=== PATIENT | male | born 1970 | race Caucasian/White ===

== ENCOUNTER → 2020-07-26 | Outpatient (CLI) | payer OTHER ==
[~2020-07-26] MED LIST: BISOPROLOL-HCT1 EACH PO; NORCO 5-325 TA1 EAC2 PO; OLMESARTAN MEDO20 MG PO; VANCO 1.251.25 GM/25 IV; ZOCOR 20 MG TAB20 M1 PO
== END ==
LOC: M.LAB 16:23
PROVIDERS: ATTEND Orthopaedic Surgery
DX: Z01.812 Encounter for preprocedural laboratory examination (principal); Z20.828 Contact with and (suspected) exposure to other viral communicable diseases

== ENCOUNTER → 2020-07-30 | Day surgery (SDC) | payer OTHER ==
--- NOTE | ~2020-07-30 | OP ---
[address] [address] OPERATIVE REPORT Name: CARLY WAN Room: [facility]#: [id number] Admission: 07/30/20 Attend Phys: Johanny Garcia DO Discharge: Date of : 70 Report #: [id number] THIS REPORT FOR: //name// cc: TAMMY PISANO MD Physician not on staff ~ CC: Johanny PISANO Physician staff DATE OF SERVICE: 07/30/2020 Romeo Arboleda DO dictating for Johanny Garcia DO PREOPERATIVE DIAGNOSIS: Left fifth metacarpophalangeal joint osteomyelitis. POSTOPERATIVE DIAGNOSIS: Left fifth metacarpophalangeal joint osteomyelitis. PROCEDURES: Left fifth metacarpophalangeal joint debridement and metatarsal head resection. SURGEON: Johanny Garcia DO ASSISTANTS: Romeo Arboleda DO and Kj Troncoso DO ANESTHESIA: General. FLUIDS: Crystalloid. ESTIMATED BLOOD LOSS: 5 mL. DRAINS: None. SPECIMENS: Left fifth metacarpal head and two culture swabs, sent to the lab for analysis. COMPLICATIONS: None. CONDITION: Stable. DISPOSITION: PACU to home. PREOPERATIVE ANTIBIOTICS: 2 g Ancef. INDICATIONS FOR PROCEDURE: A 50-year-old male who has developed a wound over the base of his fifth metatarsophalangeal joint. He tried antibiotics for a number of weeks, which failed to resolve his symptoms. 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 Further options were discussed and elected to proceed with left fifth metatarsophalangeal joint debridement and metatarsal head resection. DESCRIPTION OF PROCEDURE: The patient was seen in the preoperative area and the procedure and diagnoses were confirmed and verified to be correct. The patient was transferred to the operating suite and placed in supine position on the operating table. The patient was given the benefit of general anesthesia. The left lower extremity was prepped and draped in the usual sterile fashion. A timeout was performed in the operating room, verifying correct patient, procedure, procedure site. All parties agreed. The left pneumatic tourniquet was placed to the left thigh and then, after timeout, left pneumatic tourniquet was inflated to 250 mmHg. An incision was then made over the left fifth metatarsophalangeal joint down to bone. Dissection was carried subperiosteally to expose the left fifth MTP joint. Two culture swabs were then used after purulent appeared fluid were encountered and sent to the lab for analysis. The sagittal saw was then used to resect the fifth metatarsal head and the remaining shaft of the left fifth metatarsal base was bevelled. The fifth metatarsal head was sent to the lab for culture and analysis. A curette and a rongeur were used to remove tissue from the area of the fifth metatarsophalangeal joint. Copious amounts of sterile saline were then used to irrigate the wound at the base of the fifth MTP joint, it was then curetted and any loose tissue was removed. The subcutaneous tissue was then closed with 3-0 interrupted Monocryl followed by 3-0 interrupted nylon in the skin. A soft dressing, Xeroform, 4 x 4, ABD, Kerlix, and ALEXANDRE wrap were then applied to the left foot. Tourniquet was let down. The patient was transferred off the table to the PACU area for recovery. Counts were performed to verify correct x 2. Dr. Garcia was present for the entirety of the procedure. By: 0830 [id number] Garcia DO /cm
[2020-07-30 07:03] LABS: CALCIUM 8.7 mg/dL (8.5-10.1); POTASSIUM 3.8 mmol/L (3.5-5.1)
--- NOTE | 2020-07-30 09:35 | EKG ---
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
== END | disposition home or self-care (01) ==
LOC: M.SUR 06:17
PROVIDERS: ATTEND Orthopaedic Surgery
DX: M86.172 Other acute osteomyelitis, left ankle and foot (principal); M19.072 Primary osteoarthritis, left ankle and foot; Z79.899 Other long term (current) drug therapy; Z88.8 Allergy status to other drugs, medicaments and biological substances; Z98.890 Other specified postprocedural states